=== PATIENT | female | born 1960 | race Caucasian/White ===

== ENCOUNTER → 2018-07-09 11:56 | Outpatient (CLI) | payer OTHER, SELFPAY ==
[2018-07-09 13:46] LABS: D-Dimer Quantitative (DVT/PE) 1.61 FEU/ug/m (0.27-0.49)
== END ==
PROVIDERS: Family Provider Family Medicine; PCP Family Medicine; Referring Provider Family Medicine; Visit Provider Family Medicine
DX: R07.9 Chest pain, unspecified (principal)
CPT/HCPCS: 84484; 85379

== ENCOUNTER 2018-07-09 17:10 | Emergency (ER) | payer OTHER, SELFPAY ==
[2018-07-09 17:11] VITALS: BP 126/62; PULSE 77; RESP 17; TEMP 37.2; O2SAT 97; BMI 32.6
[2018-07-09 17:23] VITALS: O2SAT 97
--- NOTE | 2018-07-09 17:25 | EKG12_ITS ---
Test Reason : CHEST PAIN Blood Pressure : / mmHG Vent. Rate : 069 BPM Atrial Rate : 069 BPM P-R Int : 150 ms QRS Dur : 076 ms QT Int : 400 ms P-R-T Axes : 064 060 071 degrees QTc Int : 428 ms Normal sinus rhythm Normal ECG Confirmed by RAS SEQUEIRA, ANI ([id number]), editorial manager KILLIAN ZABALA ([id number] on 07/14/2018 12:33:41 PM Referred By: Robbin Batista Confirmed By:ANI MCGINNIS MD
--- NOTE | 2018-07-09 17:25 | CT_ITS ---
STUDY: CTA CHEST REASON FOR EXAM: Female, 57 years old. Elevated d-dimer. RADIATION DOSAGE (If Supplied By Facility): CTDIvol = ( 10.57 ) mGy, DLP = ( 515.38 ) mGycm TECHNIQUE: The examination was performed with the intravenous administration of 100 ml of Isovue 370 contrast material. Post-processing of the angiographic images was performed, with multiplanar reformation and 3D reconstruction. # Of Images: 1127 Individualized dose optimization techniques were used for this CT. COMPARISON: None. FINDINGS: There are mild emphysematous changes noted in the lungs. There are no pulmonary infiltrates or pleural effusions. There is no pneumothorax. There is no evidence of pulmonary emphysema. There is no evidence of thoracic aortic aneurysm or dissection. The heart and pericardium are within normal limits. There is no thoracic lymphadenopathy. Images through the upper abdomen demonstrate no significant abnormality. There are no destructive osseous lesions. CT/CTA Chest W/WO Contrast IMPRESSION: No evidence of pulmonary embolus or other acute thoracic disease. Mild emphysema. Electronically Signed: Dirk Velasquez, at 19:13 EDT Tel , Service support ,
--- NOTE | 2018-07-09 17:44 | ED.DCSUM_ITS ---
- ER Visit Summary Date of Service: 07/09/18 Chief Complaint: Abnormal blood work History of Present Illness: The patient is a 57 F presenting with abnormal blood work. Patient was seen by her primary care physician today. She had outpatient labs which showed an elevated d-dimer and she was advised to come to the ED for further evaluation. She has had chest pressure that has been continuous for the past 3 days. She states it is 3/10. She complains of mild difficulty getting a deep breath but denies shortness of breath. She has had a nonproductive cough. She denies change with exertion. Denies lightheadedness or syncope. She has a URI. Denies fever. She is a previous smoker. She has a history of hypertension, hypercholesterolemia. Physical Examination: Vitals are stable. Patient is afebrile. Alert no acute distress. HEENT exam is unremarkable. Neck is supple. Lungs are clear and equal bilaterally. Heart is regular rate and rhythm. Abdomen is soft nontender nondistended. Extremities are unremarkable. Skin is warm and dry. No focal neurologic deficit. Remainder of exam is unremarkable. Emergency Department Course and Treatment: Patient was given aspirin on arrival. EKG is normal sinus rhythm rate of 69 with no acute ischemic changes. CBC shows white count 12.2. Chemistries show creatinine 1.19. Troponin is negative. CTA chest shows no evidence of PE, mild emphysema. Delta troponin was obtained and is negative. Patient is resting comfortably on reevaluation. Discussed with Dr. Blackwell covering for Dr. Batista. Patient will be discharged to follow-up in the office. She is advised to return to ED if worsening complaints. Disposition: Discharge home Impression: Atypical chest pain This note was generated with [employer] dictation software. It may contain incorrect words, spelling, and punctuation that were not noted in review of the chart prior to signing ED Disposition - Plan for ED Patient: Chief Complaint: Shortness of Breath Referrals: Robbin Batista MD [Primary Care Provider] -
[2018-07-09] MEDS: Aspirin 81 MG TAB.CHEW 324 MG PO (17:45)
[2018-07-09 18:13] LABS: Absolute Lymphocyte Count 2.47 X10^3/ul (0.83-4.51); Absolute Neutrophil Count 8.4 X10^3/uL (2.0-7.7); Basophil# 0.03 X10^3/uL; Basophil% 0.2 % (0-1); Eosinophils% 1.6 % (0-5); Hematocrit 42.4 % (37-47); Hemoglobin 13.4 g/dl (12.0-15.0); Lymphocyte # 2.47 X10^3/ul (4.0); Lymphocyte % 20.2 % (19-41); Mean Corp Hgb Conc 31.6 g/gl (32-36); Mean Corpuscular Hgb 30.1 pg (27.0-32.0); Mean Corpuscular Volume 95.3 fL (81-99); Mean Platelet Vol. 10.6 fl (6.2-12.0); Monocyte# 1.14 X10^3/uL; Monocyte% 9.3 % (0-10); Neutrophil # 8.37 X10^3/uL (2.7-7.7); Neutrophil % 68.5 % (47-70); Platelet Count 312 K/mm3 (150-450); RBC Distribution Width CV 13.9 % (11.6-14.6); Red Blood Count 4.45 M/mm3 (4.2-5.4); White Blood Count 12.2 K/mm3 (4.4-11.0)
[2018-07-09 18:14] LABS: POSITIVE COUNT NO; POSITIVE DIFFERENTIAL NO; POSITIVE MORPHOLOGY NO
[2018-07-09 18:15] LABS: BUN 17 mg/dL (7-18); Creatinine, Serum 1.19 mg/dL (0.55-1.02); Estimated Creatinine Clearance 39.83 ml/min; Glucose 82 mg/dL (74-106)
[2018-07-09 18:16] LABS: Anion Gap 7 (5-15); BUN/Creat Ratio 14.3 RATIO (10-20); Chloride 107 mmol/L (98-107); EST Glomerular Filtration Rate 50 mL/min (>60); Est Glom Filt Rate - Afr Amer 60 mL/min (>60); Potassium 3.8 mmol/L (3.5-5.1); Sodium Level 141 mmol/L (136-145)
[2018-07-09 19:30] VITALS: BP 120/78; PULSE 69; RESP 14; O2SAT 95
[2018-07-09 21:12] VITALS: BP 123/70; PULSE 66; RESP 16; O2SAT 98
--- NOTE | 2018-07-09 22:24 | ED.DEP ---
ED Disposition - Plan for ED Patient: Chief Complaint: Shortness of Breath Instructions: ED Chest Pain Atypical Unkn Cause Referrals: Robbin Batista MD [Primary Care Provider] -
--- NOTE | 2018-07-10 10:48 | CM.ED ---
ED CALLBACK: Follow-up call placed to patient. No answer. Voicemail left with return contact information.
== END 2018-07-09 22:31 | disposition home or self-care (01) ==
PROVIDERS: Emergency Provider Emergency Medicine; Family Provider Family Medicine; PCP Family Medicine
DX: R07.89 Other chest pain (principal); R79.89 Other specified abnormal findings of blood chemistry; R05 Cough; R00.2 Palpitations; K21.9 Gastro-esophageal reflux disease without esophagitis; I10 Essential (primary) hypertension; E78.00 Pure hypercholesterolemia, unspecified; M79.7 Fibromyalgia; Z79.899 Other long term (current) drug therapy; Z87.891 Personal history of nicotine dependence
CPT/HCPCS: 71275; 80048; 84484; 85025; 93005; 99285; Q9967; A4216

== ENCOUNTER 2019-01-08 05:23 | Emergency (ER) | payer SELFPAY ==
[2019-01-08 05:25] VITALS: BP 147/80; PULSE 76; RESP 18; TEMP 37.2; O2SAT 99; BMI 34.3
--- NOTE | 2019-01-08 05:42 | CT_ITS ---
STUDY: CT ABDOMEN AND PELVIS WITH CONTRAST REASON FOR EXAM: Female, 58 years old. Right upper quadrant pain. RADIATION DOSAGE (If Supplied By Facility): CTDIvol = ( 16.94 ) mGy, DLP = ( 982.31 ) mGycm TECHNIQUE: Transaxial images were obtained from the dome of the diaphragm to the symphysis pubis with oral contrast. 100ML IV/Oral Isovue 300 was administered. Sagittal and coronal images were reconstructed. Individualized dose optimization techniques were used for this CT. COMPARISON: None. FINDINGS: Minimal degree of dependent bibasilar atelectasis. The visualized portions of the heart are within normal limits. There is decreased attenuation of the liver consistent with steatosis. Normal gallbladder and extrahepatic biliary system. Normal spleen. Normal pancreas. Normal bilateral adrenal glands. Normal right kidney. There is a subcentimeters cyst in the lateral aspect of the left kidney. There is a small hiatal hernia. Normal small intestine. Normal colon. There is non-visualization of the appendix. Small lymph nodes are seen in the mesentery in the right lower quadrant suggestive of possible mesenteric adenitis. Normal abdominal aorta. Normal inferior vena cava. There is borderline retroperitoneal lymphadenopathy with enlarged nodes no greater than 10mm in the short axis diameter. Normal urinary bladder. There is absence of the uterus consistent with a prior hysterectomy. Normal abdominal wall. There are mild degenerative changes of the visualized lumbar spine. CT/Abdomen/Pelvis WITH Contrast IMPRESSION: Fatty infiltration of the liver. Small lymph nodes are seen in the mesentery in the right lower quadrant suggestive of mesenteric adenitis. Electronically Signed: Jitendra Toscano, at 8:13 EDT , Service support ,
[2019-01-08 05:52] LABS: Mucous, Urine 0 SEEN /hpf (<or=2+)
[2019-01-08] MEDS: Morphine 4 MG/ML Syringe IV (05:52)
[2019-01-08] MEDS: 0.9% Normal Saline 1,000 ML 150 ML IV (05:52)
[2019-01-08] MEDS: Ondansetron 4 MG/2 ML Vial IV (05:52)
[2019-01-08 05:58] LABS: Color, Urine Yellow (Yellow); Glucose, Dipstick Normal (Normal); Ketone-Dipstick Negative (Negative); Leukocyte Esterase-Dipstick Negative /ul (Negative); Nitrite-Dipstick Negative (Negative); Occult Blood-Urine 10 /ul (Negative); Protein-Dipstick Negative (Negative); Urine Bilirubin Dipstick Negative (Negative); Urine Clarity Clear (Clear); Urine Urobilinogen Normal (Normal)
[2019-01-08 06:08] LABS: Squamous Epithelial Cells - UA 0-5 SEEN /hpf (5-10); White Blood Cells 0-5 SEEN /hpf (0-5)
[2019-01-08 06:09] LABS: Bacteria 1+ /hpf (None Seen); Red Blood Cells-Urine 0-5 SEEN /hpf (0-5)
[2019-01-08 06:13] LABS: Absolute Neutrophil Count 6.2 X10^3/uL (2.0-7.7); Basophil# 0.04 X10^3/uL; Basophil% 0.3 % (0-1); Eosinophil# 0.31 X10^3/uL; Eosinophils% 2.6 % (0-5); Hemoglobin 13.6 g/dl (12.0-15.0); Lymphocyte % 36.3 % (19-41); Mean Corp Hgb Conc 33.2 g/gl (32-36); Mean Corpuscular Volume 90.3 fL (81-99); Mean Platelet Vol. 10.3 fl (6.2-12.0); Monocyte# 0.96 X10^3/uL; Monocyte% 8.1 % (0-10); Neutrophil # 6.19 X10^3/uL (2.7-7.7); Neutrophil % 52.4 % (47-70); Platelet Count 359 K/mm3 (150-450); RBC Distribution Width CV 13.7 % (11.6-14.6); RBC Distribution Width SD 44.6 fl (35.1-43.9); Red Blood Count 4.54 M/mm3 (4.2-5.4); White Blood Count 11.8 K/mm3 (4.4-11.0)
[2019-01-08 06:21] LABS: Differential Indicated SCAN CRITERIA MET; POSITIVE COUNT NO; POSITIVE DIFFERENTIAL NO; POSITIVE MORPHOLOGY YES
[2019-01-08 06:26] LABS: AST(SGOT) 23 U/L (15-37); Alanine Aminotransfer ALT/SGPT 33 U/L (13-56); Albumin, Serum 3.9 g/dL (3.2-5.0); Alkaline Phosphatase 93 U/L (45-117); Anion Gap 7 (5-15); BUN 20 mg/dL (7-18); BUN/Creat Ratio 19.8 RATIO (10-20); Bilirubin, Direct 0.06 mg/dL (0.00-0.30); Calcium,Total 9.5 mg/dL (8.5-10.1); Chloride 106 mmol/L (98-107); Creatinine, Serum 1.01 mg/dL (0.55-1.02); EST Glomerular Filtration Rate 60 mL/min (>60); Est Glom Filt Rate - Afr Amer 73 mL/min (>60); Estimated Creatinine Clearance 46.37 ml/min; Globulin 3.8 g/dL (2.2-4.2); Glucose 119 mg/dL (74-106); Lipase 292 U/L (73-393); Potassium 4.2 mmol/L (3.5-5.1); Protein, Total 7.7 g/dL (6.4-8.2); Sodium Level 139 mmol/L (136-145)
[2019-01-08 06:39] LABS: Differential Comment SCANNED
--- NOTE | 2019-01-08 06:48 | ED.DCSUM_ITS ---
- ER Visit Summary Date of Service: 01/08/19 Chief Complaint: Abdominal pain History of Present Illness: The patient is a 58 F with 1 month history of right upper quadrant abdominal pain that has continued to worsen. She points to a line that wraps around the lower ribs on the right. She describes the pain as sharp. She does not have shortness of breath, nausea, or vomiting. Pain is not worse with food. She was seen at [facility]. Right upper quadrant ultrasound was grossly unremarkable and unchanged when compared to prior. Patient states she was told the pain does not get better or gets worse she should go the emergency room. Patient states pain is very minimal with palpation over her abdomen. It is not particularly worsened with movement. Physical Examination: Vital signs unremarkable. Patient sitting upright in bed no acute distress. Heart is regular rate and rhythm. Lungs sounds are clear. Abdomen is soft with minimal tenderness in the right upper quadrant. No guarding or rebound. No skin rash or lesions. Test Results: CBC was a white count of 11.8 with normal differential. Chemistry studies unremarkable. LFTs and lipase are normal. Urinalysis is normal. Emergency Department Course and Treatment: Patient was given morphine, Zofran, and IV fluids. CT scan of the abdomen and pelvis with contrast is ordered. This will be signed out to oncoming physician. Treatment Plan: [] Disposition: Pending CT imaging Impression: Right upper quadrant pain This note was generated with [employer] dictation software. It may contain incorrect words, spelling, and punctuation that were not noted in review of the chart prior to signing ED Disposition - Plan for ED Patient: Referrals: Robbin Batista MD [Primary Care Provider] -
[2019-01-08 07:43] VITALS: RESP 18
--- NOTE | 2019-01-08 08:35 | ED.DEP ---
ED Disposition - Plan for ED Patient: Instructions: ED Abdominal Pain Unkn Cause Referrals: Robbin Batista MD [Primary Care Provider] -
== END 2019-01-08 09:01 | disposition home or self-care (01) ==
LOC: ED 05:45
PROVIDERS: Emergency Provider Emergency Medicine; Family Provider Family Medicine; PCP Family Medicine
DX: R10.11 Right upper quadrant pain (principal); K21.9 Gastro-esophageal reflux disease without esophagitis; I10 Essential (primary) hypertension; E78.00 Pure hypercholesterolemia, unspecified; M79.7 Fibromyalgia; Z79.899 Other long term (current) drug therapy; Z87.891 Personal history of nicotine dependence
CPT/HCPCS: 74177; 80048; 80076; 81001; 83690; 85025; 96361; 96374; 96375; 99284; J7030; Q9967; A4216; J2405